=== PATIENT | male | born 1940 | race Caucasian/White ===

== ENCOUNTER 2018-12-26 14:44 | Observation (INO) ==
[2018-12-26] MEDS ORDERED: NITROGLYCERIN 0.4 MG/TAB BTL SL ONE (14:53)
[2018-12-26] MEDS ORDERED: ASPIRIN 325 MG TABLET.DR PO ONE (14:53)
[2018-12-26] MEDS ORDERED: ALBUTEROL SULFATE/IPRATROPIUM 3 ML NEBU IH ONE (14:53)
[2018-12-26] MEDS ORDERED: NITROGLYCERIN 1 INCH PACKET TD ONE (14:57)
[2018-12-26 15:07] LABS: Hemoglobin 15.8 gm/dL (13.5-18.0); Mean Cell Volume 95.1 fl (78-100); Mean Corpuscular Hemoglobin 30.7 pg (27-31); Mean Corpuscular Hgb Conc 32.2 g/dl (32-36); Mean Platelet Volume 10.3 fl (8-11.3); Neutrophil % 67.2 % (42-75.0); Platelet Count 229 K/mm3 (150-450); Red Blood Count 5.15 M/mm3 (4.7-6.0); Red Cell Distribution Width 13.5 % (11.5-14.0); White Blood Count 10.4 K/mm3 (4.0-10.5)
[2018-12-26 15:26] LABS: ALT 21 U/L (19-67); AST 22 U/L (0-48); Albumin * 2.9 gm/dl (3.4-5.0); Alkaline Phosphatase * 85 U/L (50-170); Anion Gap 5.2 mmol/L (6.8-13.8); Bilirubin, Total 0.3 mg/dL (0.0-1.1); Blood Urea Nitrogen 16 mg/dL (6-23); Ca. Corrected For Albumin 9.7 mg/dL (8.4-10.2); Calcium * 9.1 mg/dL (7.9-10.9); Carbon Dioxide 37.9 mmol/L (24-32.6); Chloride 99 mmol/L (97-106); Digoxin 0.5 ng/mL (0.5-2.0); Glucose * 104 mg/dL (70-110); Potassium 4.1 mmol/L (3.4-4.6); Sodium 138 mmol/L (132-142); Total Protein 6.8 gm/dL (6.2-8.2)
[2018-12-26 15:27] LABS: Troponin I Less than 0.017 ng/mL (0.00-0.10)
[2018-12-26] MEDS ORDERED: MORPHINE SULFATE 4 MG/ML SYRG IV ONE (15:37)
[2018-12-26] MEDS ORDERED: METHYLPREDNISOLONE SOD SUCC/PF 125 MG/2 ML VIAL IV ONE (15:41)
[2018-12-26 15:47] LABS: Prothrombin Time (Patient) 25.5 Seconds (9.1-10.7)
[2018-12-26 15:48] LABS: INR 2.68 INR (0.92-1.08)
--- NOTE | 2018-12-26 16:43 | ERNOTE ---
Chest Pain/Cardiac HPI Date of Service: 12/26/18 Chief Complaint: Chest Pain Time Seen by Provider: 12/26/18 14:47 Source: patient, family Exam Limitations: no limitations Immunizations: IMMUNIZATION HX Immunizations Up to Date Yes History of Influenza Vaccine No Hx Pneumococcal Vaccination Yes Allergies/Adverse Reactions: Allergies oxycodone HCl [From Percocet] Allergy (Severe, Verified 09/09/18 08:52) Hives Home Medications: HOME MEDICATIONS Aspirin [Ecotrin] 81 mg PO DAILY 01/30/14 [Last Taken 11/16/14] Budesonide/Formoterol Fumarate [Symbicort 160-4.5 Mcg Inhaler] 2 puff IH BID #1 inhaler 11/20/14 [Last Taken Unknown] Ascorbic Acid [Vitamin C] 1,000 mg PO DAILY 06/20/15 [Last Taken Unknown] acetaminophen 500 mg tablet See Rx Instructions PO Q6H PRN 03/04/18 [Last Taken Unknown] albuterol sulfate HFA 90 mcg/actuation aerosol inhaler See Rx Instructions IH Q6H PRN 03/04/18 [Last Taken Unknown] cholecalciferol (vitamin D3) 2,000 unit capsule 1,000 unit PO DAILY cap 03/04/18 [Last Taken Unknown] ipratropium-albuterol 0.5 mg-3 mg(2.5 mg base)/3 mL nebulization soln 3 ml IH QID #180 ml 06/25/18 [Last Taken Unknown] atorvastatin 40 mg tablet 40 mg PO QHS #90 tab 09/22/18 [Last Taken Unknown] metoprolol tartrate 50 mg tablet 50 mg PO BID #180 tab 12/23/18 [Last Taken Unknown] Citalopram Hydrobromide [Citalopram HBr] 20 mg PO DAILY 12/26/18 [Last Taken Unknown] Digoxin [Lanoxin] 0.125 mg PO DAILY 12/26/18 [Last Taken Unknown] Enalapril/Hydrochlorothiazide [Enalapril-Hctz 10-25 mg Tablet] 1 ea PO DAILY 12/26/18 [Last Taken Unknown] Warfarin Sodium [Coumadin] 5 mg PO TUWEFRSA 12/26/18 [Last Taken Unknown] Warfarin Sodium [Coumadin] 7.5 mg PO SUMOTH 12/26/18 [Last Taken Unknown] omeprazole 20 mg capsule,delayed release 20 mg PO DAILY 12/26/18 [Last Taken Unknown] Narrative: Patient presents to the ED for pain in the center of his chest. This started around 3am. He has never had it before. Nothing seems to make it better or worse. He is not sure if it has been constant or not. Mildly worse with deep breathing. Has not seen anyone else for this. No fever. Has been having some clear cough. Pain moderate right now but he has a hard time rating it. Timing: constant Severity/Quality: moderate Location: central Chest Pain Radiation: no radiation Activities at Onset: none Modifying Factors - Improves: Present: nothing Modifying Factors - Worsens: Present: breathing Nitro Today/Relief: no nitro taken today Aspirin Treatment Today: no aspirin today Associated Symptoms: Present: cough. Absent: headache, syncope, fever/chills, abdominal pain Prior Treatment: Denies: recently seen Review of Systems - Review of Systems Constitutional: Absent: chills EYE: Present: no symptoms reported Respiratory: Present: cough Cardiology: Present: chest pain Gastrointestinal/Abdominal: Absent: abdominal pain Genitourinary: Absent: dysuria All Other Systems: All systems neg except as marked Medical History (Updated 12/11/18 @ 11:13 by David Wood MD) Atrial fibrillation Onset Date: Unknown COPD (chronic obstructive pulmonary disease) Onset Date: Unknown Hyperlipidemia Onset Date: Unknown Hypertension Onset Date: Unknown Myocardial infarction Onset Date: Unknown ANTHONY (obstructive sleep apnea) Onset Date: Unknown Surgical History: Surgical History (Updated 03/04/18 @ 13:45 by Yessy Smith [facility]) H/O Aneurysm Repair Onset Date: ~2001 H/O cystoscopy Onset Date: Unknown H/O heart artery stent Onset Date: ~02/28/01 Dr. Lucy Olivera H/O lithotripsy Onset Date: ~10/14/00 Dr. García, left sided History of incision and drainage Onset Date: ~02/01/14 Dr. Tillman for abscess mid back Hx of cataract surgery Onset Date: ~200606/03/2007 right 07/15/2007 left Family History: Family History (Updated 03/04/18 @ 13:48 by Yessy Smith [employer]) Brother , age 60 Cirrhosis of liver Father , age 70 Lung cancer Mother , age 70's Heart disease Breast cancer Social History: Preferred Language Yi Do you have any yarsani or Yes: judaism cultural preference? Smoking Status Current every day smoker Have you smoked in the past 12 Yes months Do you dip or chew tobacco No Alcohol Use none Drug Use none (Last Updated 12/11/18 @ 11:14 by David Wood MD) No Social History Section defined Physical Exam - Physical Exam General Appearance: Present: alert, no apparent distress Head Exam: Present: normal inspection, no evidence of injury Eye Exam: Normal inspection: bilateral, PERRL: bilateral Ears, Nose, Throat: Present: normal ENT inspection Neck: Present: normal inspection Respiratory: Present: no respiratory distress, no accessory muscle use, wheezing Cardiovascular/Chest: Present: regular rate, rhythm Gastrointestinal/Abdominal: Present: normal bowel sounds, nontender, soft Back Exam: Absent: CVA tenderness (R), CVA tenderness (L) Extremity Exam: Present: normal range of motion Neurological Exam: Present: alert, no motor/sensory deficits Skin Exam: Present: normal color, warm/dry Progress - Results and Orders Patient's Lab Results:: I have reviewed the patient's lab results. - Vital Signs Patient's Vital Signs:: I have reviewed the patient's vital signs. Vital Signs: Vital Signs 12/26/18 14:46 12/26/18 15:04 12/26/18 15:26 Temperature 36.7 C Pulse Rate 69 58 L 58 L Respiratory Rate 23 H 15 Blood Pressure 114/37 O2 Sat by Pulse Oximetry 92 L 12/26/18 15:54 Temperature Pulse Rate 57 L Respiratory Rate 18 Blood Pressure 131/62 O2 Sat by Pulse Oximetry 95 - EKG EKG #1 EKG: NSR EKG read: Interp. by me EKG Comments: NSR rate 69. Non-specific changes , no STEMI noted. - X-Ray X-Ray #1 X-Ray: chest Interpretation: Interp. by me X-ray Comments: I reviewed official radiology report - CT/Ultrasound CT/Ultrasound Narrative: I reviewed official radiology report - Progress/Reassessment Chief Complaint: Chest Pain Progress Note-Subjective: 12/26/18 16:42 Pain improved with NTG. Dr Montoya requests CT prior to admission. D/W Patient. Departure Clinical Impression: Chest pain, Lung mass - Departure Disposition: Still a patient Condition: Fair Referrals: David Wood MD [Primary Care Provider] -
[2018-12-26] MEDS ORDERED: METOPROLOL TARTRATE 1 MG/ML AMPUL IV ONE (19:46)
[2018-12-26] MEDS ORDERED: ACETAMINOPHEN 500 MG TABLET PO PRN (19:47)
[2018-12-26] MEDS ORDERED: WARFARIN SODIUM 5 MG TABLET PO SCH (20:00)
[2018-12-26] MEDS ORDERED: FLUTICASONE PROPION/SALMETEROL 14 PUFF DISK.W.DEV IH SCH (20:15)
[2018-12-26] MEDS ORDERED: BENZONATATE 100 MG CAPSULE PO PRN (20:26)
--- NOTE | 2018-12-26 20:26 | HP ---
Chief Complaint - Chief Complaint Date of Service: 12/26/18 Time of Service: 19:52 Chief Complaint: chest pain History of Present Illness: Patient with PMHx of afib, COPD presented to the ED after having several hours of centralized chest pain. He has shortness of breath and cough at baseline, and these have not increased today since his cough developed. Denies fever, abdominal pain, or other complaints. Initial troponin was negative, and EKG showed sinus rhythm. CXR showed a mass with very distinct borders, and CT chest was subsequently ordered. This revealed a large right upper lobe pleural based mass in his chest with possibly bony destruction, and possible adrenal metastases. He was unaware of this previously. His reports he has been losing weight. He was admitted for repeat troponin and EKG. Will refer him to pulmonology after DC for biopsy. Shortly after arriving to the floor, and after my evaluation, he had a coughing fit, and subsequently flipped into afib with RVR, with a rate to the 140's. He is prescribed 0.125 mg digoxin, and 50 mg metroprolol bid for afib, and is anticoagulated with warfarin. He had not taken his medications on the day of admission. He was given 5 mg lopressor, and restarted his home meds. Medical History (Updated 12/26/18 @ 16:43 by Marbin Gamez MD) Atrial fibrillation Onset Date: Unknown COPD (chronic obstructive pulmonary disease) Onset Date: Unknown Hyperlipidemia Onset Date: Unknown Hypertension Onset Date: Unknown Myocardial infarction Onset Date: Unknown ANTHONY (obstructive sleep apnea) Onset Date: Unknown Surgical History: Surgical History (Updated 03/04/18 @ 13:45 by Yessy Smith [facility]) H/O Aneurysm Repair Onset Date: ~2001 H/O cystoscopy Onset Date: Unknown H/O heart artery stent Onset Date: ~02/28/01 Dr. Lucy Olivera H/O lithotripsy Onset Date: ~10/14/00 Dr. García, left sided History of incision and drainage Onset Date: ~02/01/14 Dr. Tillman for abscess mid back Hx of cataract surgery Onset Date: ~200606/03/2007 right 07/15/2007 left Family History: Family History (Updated 03/04/18 @ 13:48 by Yessy Smith [facility]) Brother , age 60 Cirrhosis of liver Father , age 70 Lung cancer Mother , age 70's Heart disease Breast cancer Social History: Patient Lives/Resources With Spouse Utilized Occupation retired Preferred Language Micronesian Do you have any voodoo or Yes: Hindu cultural preference? Smoking Status Current every day smoker Have you smoked in the past 12 Yes months Do you dip or chew tobacco No Alcohol Use none Drug Use none (Last Updated 12/11/18 @ 11:14 by David Wood MD) No Social History Section defined Review Of Systems (GEN) - Review of Systems Generalized/Overall Review: Absent: Fever Respiratory: Present: Cough, Shortness of Breath Cardiac: Present: Chest Pain Abdominal: Absent: Nausea Genitourinary: Present: No Symptoms Reported Neurological: Present: No Symptoms Reported Immunizations: IMMUNIZATION HX Immunizations Up to Date Yes History of Influenza Vaccine No Hx Pneumococcal Vaccination Yes Allergies/Adverse Reactions: Allergies Allergy/AdvReac Type Severity Reaction Status Date / Time oxycodone HCl [From Percocet] Allergy Severe Hives Verified 12/26/18 19:09 Home Medications: HOME MEDICATIONS Aspirin [Ecotrin] 81 mg PO DAILY 01/30/14 [Last Taken 11/16/14] Budesonide/Formoterol Fumarate [Symbicort 160-4.5 Mcg Inhaler] 2 puff IH BID #1 inhaler 11/20/14 [Last Taken Unknown] Ascorbic Acid [Vitamin C] 1,000 mg PO DAILY 06/20/15 [Last Taken Unknown] acetaminophen 500 mg tablet See Rx Instructions PO Q6H PRN 03/04/18 [Last Taken Unknown] cholecalciferol (vitamin D3) 2,000 unit capsule 1,000 unit PO DAILY cap 03/04/18 [Last Taken Unknown] ipratropium-albuterol 0.5 mg-3 mg(2.5 mg base)/3 mL nebulization soln 3 ml IH QID #180 ml 06/25/18 [Last Taken Unknown] atorvastatin 40 mg tablet 40 mg PO QHS #90 tab 09/22/18 [Last Taken Unknown] metoprolol tartrate 50 mg tablet 50 mg PO BID #180 tab 12/23/18 [Last Taken Unknown] Citalopram Hydrobromide [Citalopram HBr] 20 mg PO DAILY 12/26/18 [Last Taken Unknown] Digoxin [Lanoxin] 0.125 mg PO DAILY 12/26/18 [Last Taken Unknown] Enalapril/Hydrochlorothiazide [Enalapril-Hctz 10-25 mg Tablet] 1 ea PO DAILY 12/26/18 [Last Taken Unknown] Warfarin Sodium [Coumadin] 7.5 mg PO SUMOTH 12/26/18 [Last Taken Unknown] Warfarin Sodium [Coumadin] 10 mg PO WEFR12/26/18 [Last Taken Unknown] omeprazole 20 mg capsule,delayed release 20 mg PO DAILY 12/26/18 [Last Taken Unknown] Exam - Exam Vital Signs: Vital Signs - Last Taken Temp 36.6 C 12/26/18 19:12 Pulse 65 12/26/18 19:12 Resp 24 H 12/26/18 19:12 BP 128/69 12/26/18 19:12 Pulse Ox 96 12/26/18 19:12 Constitutional: Present: Alert, Oriented x3, Cooperative, Elderly ENT Exam: Present: hard of hearing Respiratory: Present: no respiratory distress, decreased breath sounds, other - wearing oxygen, at his baseline Cardiovascular/Chest: Present: regular rate, rhythm. Absent: chest tender, edema Abdomen: Present: soft, nontender, nondistended Eye contact: Present: cooperative, good eye contact Diagnostic Studies: Abnormal Lab Results 12/26/18 12/26/18 12/26/18 Range/Units 15:00 15:00 15:00 Immature Gran % (Auto) 0.70 H (0.001-0.429) % Immature Gran # (Auto) 0.07 H (0.000-0.0310) K/mm3 Neutrophils # 7.0 H (1.3-6.0) K/mm3 PT 25.5 H (9.1-10.7) Seconds INR (Anticoag Therapy) 2.68 H (0.92-1.08) INR Carbon Dioxide 37.9 H (24-32.6) mmol/L Anion Gap 5.2 L (6.8-13.8) mmol/L Albumin 2.9 L (3.4-5.0) gm/dl Laboratory Results WBC 10.4 K/mm3 (4.0-10.5) 12/26/18 15:00 RBC 5.15 M/mm3 (4.7-6.0) 12/26/18 15:00 Hgb 15.8 gm/dL (13.5-18.0) 12/26/18 15:00 Hct 49.0 % (42.0-52.0) 12/26/18 15:00 MCV 95.1 fl (78-100) 12/26/18 15:00 MCH 30.7 pg (27-31) 12/26/18 15:00 MCHC 32.2 g/dl (32-36) 12/26/18 15:00 RDW 13.5 % (11.5-14.0) 12/26/18 15:00 Plt Count 229 K/mm3 (150-450) 12/26/18 15:00 MPV 10.3 fl (8-11.3) 12/26/18 15:00 Immature Gran % (Auto) 0.70 % (0.001-0.429) H 12/26/18 15:00 Immature Gran # (Auto) 0.07 K/mm3 (0.000-0.0310) H 12/26/18 15:00 67.2 % (42-75.0) 12/26/18 15:00 21.8 % (20-51) 12/26/18 15:00 8.5 % (0.0-9) 12/26/18 15:00 1.3 % (0.0-3.0) 12/26/18 15:00 0.5 % (0.0-1.0) 12/26/18 15:00 Nucleated RBC % 0.0 k/mm3 (0-1) 12/26/18 15:00 7.0 K/mm3 (1.3-6.0) H 12/26/18 15:00 2.27 k/mm3 (1.5-3.5) 12/26/18 15:00 0.9 k/mm3 (0.0-1.0) 12/26/18 15:00 0.1 k/mm3 (0.0-0.7) 12/26/18 15:00 Absolute Basophils 0.1 k/mm3 (0.0-0.1) 12/26/18 15:00 PT 25.5 Seconds (9.1-10.7) H 12/26/18 15:00 INR (Anticoag Therapy) 2.68 INR (0.92-1.08) H 12/26/18 15:00 Sodium 138 mmol/L (132-142) 12/26/18 15:00 138 mmol/L (130-142) 12/26/18 15:00 Potassium 4.1 mmol/L (3.4-4.6) 12/26/18 15:00 Chloride 99 mmol/L (97-106) 12/26/18 15:00 Carbon Dioxide 37.9 mmol/L (24-32.6) H 12/26/18 15:00 5.2 mmol/L (6.8-13.8) L 12/26/18 15:00 BUN 16 mg/dL (6-23) 12/26/18 15:00 0.80 mg/dL (0.4-1.4) 12/26/18 15:00 Est GFR (Non-Af Amer) 99 mL/min (60-130) 12/26/18 15:00 20.0 (9.0-21.6) 12/26/18 15:00 104 mg/dL (70-110) 12/26/18 15:00 Calcium 9.1 mg/dL (7.9-10.9) 12/26/18 15:00 Calcium Adj for Albumin 9.7 mg/dL (8.4-10.2) 12/26/18 15:00 0.3 mg/dL (0.0-1.1) 12/26/18 15:00 AST 22 U/L (0-48) 12/26/18 15:00 ALT 21 U/L (19-67) 12/26/18 15:00 85 U/L (50-170) 12/26/18 15:00 Less than 0.017 ng/mL (0.00-0.10) 12/26/18 15:00 6.8 gm/dL (6.2-8.2) 12/26/18 15:00 2.9 gm/dl (3.4-5.0) L 12/26/18 15:00 Digoxin 0.5 ng/mL (0.5-2.0) 12/26/18 15:00 Assessment/Plan - Assessment/Plan (1) Chest pain Assessment: Initial troponin not elevated, no acute findings of ischemia or infarct on initial EKG. Repeat pending for 2100. Ddx includes ACS, COPDe, bony mets, musculoskeletal source, reflux. He had some improvement with morphine in the ED, and will continue. He had a history of COPD, and continues to smoke. He is afebrile, WBC not elevated, and no signs of pneumonia on his CXR, and no increased oxygen requirement make COPD exacerbation less likely. With the potential bony destruction found on his CT, this a very possible source of his pain. Problem: Acute (2) Atrial fibrillation and flutter Assessment: He was in sinus rhythm at my exam, and has since flipped into afib with RVR with a rate into the 130's after a coughing fit. 5 mg lopressor given. He hadn't taken his home digoxin or metoprolol today, and will restart these tonight. He is anticoagulated with warfarin. If he remains higher than 130, will repeat lopressor X 2 and call cardiology in the morning. He had recorded heart rates in the 50's earlier this afternoon. Problem: Chronic (3) Lung mass Assessment: CT chest showed "Large right upper lobe pleural-based mass with possible underlying bony destruction. Malignancy must be excluded. Small nodularity within the right lung scattered throughout as above. Metastatic disease cannot be excluded. Large adrenal masses bilaterally suspicious for metastatic disease." He was unaware of these findings previously, and his reports he has been losing weight. Will need to refer him to pulmonology for biopsy. Problem: Acute (4) COPD (chronic obstructive pulmonary disease) Assessment: Continue home meds. Will add tessalon perles and mucinex for cough. Problem: Chronic
[2018-12-26] MEDS: MORPHINE SULFATE 4 MG/ML SYRG IV PRN (20:29)
[2018-12-26] MEDS: DIGOXIN 0.125 MG TABLET PO SCH (21:01)
[2018-12-26] MEDS: METOPROLOL TARTRATE 50 MG TABLET PO SCH (21:01)
[2018-12-26] MEDS: CITALOPRAM HYDROBROMIDE 20 MG TABLET PO SCH (21:01)
[2018-12-26] MEDS: ENALAPRIL MALEATE 5 MG TABLET PO SCH (21:01)
[2018-12-26] MEDS: HYDROCHLOROTHIAZIDE 25 MG TABLET PO SCH (21:01)
[2018-12-26] MEDS: ALBUTEROL SULFATE/IPRATROPIUM 3 ML NEBU IH SCH (21:40)
[2018-12-27] MEDS: MORPHINE SULFATE 4 MG/ML SYRG IV PRN ×2 (01:29→05:56)
[2018-12-27] MEDS: ALBUTEROL SULFATE/IPRATROPIUM 3 ML NEBU IH SCH ×2 (06:08→10:05)
[2018-12-27] MEDS ORDERED: ACETAMINOPHEN 500 MG TABLET PO PRN (07:15)
[2018-12-27] MEDS ORDERED: MORPHINE SULFATE 2 MG/ML DISP.SYRIN IV PRN (07:15)
[2018-12-27] MEDS ORDERED: PANTOPRAZOLE SODIUM 20 MG TABLET.DR PO SCH (07:30)
[2018-12-27] MEDS: CITALOPRAM HYDROBROMIDE 20 MG TABLET PO SCH (08:41)
[2018-12-27] MEDS: HYDROCHLOROTHIAZIDE 25 MG TABLET PO SCH (08:41)
[2018-12-27] MEDS: ENALAPRIL MALEATE 5 MG TABLET PO SCH (08:41)
[2018-12-27] MEDS: METOPROLOL TARTRATE 50 MG TABLET PO SCH (08:42)
[2018-12-27] MEDS: DIGOXIN 0.125 MG TABLET PO SCH (08:43)
[2018-12-27] MEDS ORDERED: HYDROcodone/ACETAMINOPHEN 1 EACH TABLET PO PRN (08:46)
[2018-12-27] MEDS ORDERED: ASPIRIN 81 MG TABLET.DR PO SCH (09:00)
[2018-12-27] MEDS ORDERED: HYDROCHLOROTHIAZIDE 25 MG TABLET PO SCH (09:00)
--- NOTE | 2018-12-27 10:49 | DS ---
(1) Chest pain Problem: Acute (2) Atrial fibrillation and flutter Problem: Chronic (3) Lung mass Problem: Acute (4) COPD (chronic obstructive pulmonary disease) Problem: Chronic Description of Stay: Patient with PMHx of afib, COPD presented to the ED after having several hours of centralized chest pain. He has shortness of breath and cough at baseline, and these had not increased today since his chest pain developed. Denies fever, abdominal pain, or other complaints. Troponins were negative, and EKG showed sinus rhythm. CXR showed a mass with very distinct borders, and CT chest was s ubsequently ordered. This revealed a large right upper lobe pleural based mass in his chest with possibly bony destruction, and possible adrenal metastases. He was unaware of this previously. His reports he has been losing weight. Shortly after arriving to the floor, and after my evaluation, he had a coughing fit, and subsequently flipped into afib with RVR, with a rate to the 140's. At home he is prescribed 0.125 mg digoxin, and 50 mg metroprolol bid for afib, and is anticoagulated with warfarin. He had not taken his medications on the day of admission. He was given 5 mg lopressor, and restarted his home meds. His heart rate then remained around 100. We will get him scheduled with cardiology after DC. INR was at therapeutic level of 2.68. The day after discharge, his pain medicine was changed from morphine to norco in anticipation of discharge. He had an allergy to oxycodone in this chart, with hives as a reaction. His is very concerned about pain control after discharge, and he was given a dose of [place] without adverse effects. He felt comfortable using [place] for pain control going forward. Discussed the concerning findings on his chest CT, and will be referring him to pulmonology for potential biopsy. There is a chance his chest pain may have come from the possible bony destruction secondary to the mass. Procedures Performed: none Results and Findings: Lab Pending Results 12/26/18 15:00: WBC 10.4, RBC 5.15, Hgb 15.8, Hct 49.0, MCV 95.1, MCH 30.7, MCHC 32.2, RDW 13.5, Plt Count 229, MPV 10.3, Immature Gran % (Auto) 0.70 H, Immature Gran # (Auto) 0.07 H, Neutrophils % 67.2, Lymphocytes % 21.8, Monocytes % 8.5, Eosinophils % 1.3, Basophils % 0.5, Nucleated RBC % 0.0, Neutrophils # 7.0 H, Lymphocytes # 2.27, Monocytes # 0.9, Eosinophils # 0.1, Absolute Basophils 0.1 12/26/18 15:00: PT 25.5 H, INR (Anticoag Therapy) 2.68 H 12/26/18 15:00: Sodium 138, Plasma Sodium 138, Potassium 4.1, Chloride 99, Carbon Dioxide 37.9 H, Anion Gap 5.2 L, BUN 16, Creatinine 0.80, Est GFR (Non-Af Amer) 99, BUN/Creatinine Ratio 20.0, Random Glucose 104, Calcium 9.1, Calcium Adj for Albumin 9.7, Total Bilirubin 0.3, AST 22, ALT 21, Alkaline Phosphatase 85, Troponin I Less than 0.017, Total Protein 6.8, Albumin 2.9 L, Digoxin 0.5 12/26/18 21:00: Troponin I Less than 0.017 Discharge Location: Home Disposition: Home self-care Condition: Fair Discharge Activity: Activity as tolerated Discharge Diet: General/regular food Referrals: David Wood MD [Primary Care Provider] - One Week Additional Patient Instructions (free text): TCM appointment at [place] Make referrals to [facility] Pulmonology for lung mass. Patient has seen Lucy Olivera in the past and would like to see either her or another MD from [facility] that comes to [facility]. Does not want to travel to [place] if possible. Patient with a-fib. Call patient's , Rita, at [phone] with appointment dates/time per patient request. Prescriptions (Any new or edited meds): guaiFENesin [Mucinex] 1,200 mg PO BID #20 tablet.sa HYDROcodone/ACETAMINOPHEN [[place] 5-325] 1 ea PO Q6H PRN #28 tab PRN Reason: Pain Benzonatate [Tessalon] 200 mg PO TID PRN #21 cap PRN Reason: Cough Complete Home Medications List: Complete Home Medication List: Aspirin [Ecotrin] 81 mg PO DAILY 01/30/14 Ascorbic Acid [Vitamin C] 1,000 mg PO DAILY 06/20/15 acetaminophen 500 mg tablet See Rx Instructions PO Q6H PRN 03/04/18 cholecalciferol (vitamin D3) 2,000 unit capsule 1,000 unit PO DAILY cap 03/04/18 ipratropium-albuterol 0.5 mg-3 mg(2.5 mg base)/3 mL nebulization soln 3 ml IH QID #180 ml 06/25/18 atorvastatin 40 mg tablet 40 mg PO QHS #90 tab 09/22/18 metoprolol tartrate 50 mg tablet 50 mg PO BID #180 tab 12/23/18 Budesonide [Pulmicort Respules] 2 ml INHALATION BID 12/26/18 Citalopram Hydrobromide [Citalopram HBr] 20 mg PO DAILY 12/26/18 Digoxin [Lanoxin] 0.125 mg PO DAILY 12/26/18 Enalapril/Hydrochlorothiazide [Enalapril-Hctz 10-25 mg Tablet] 1 ea PO DAILY 12/26/18 Warfarin Sodium [Coumadin] 7.5 mg PO SUMOTH 12/26/18 Warfarin Sodium [Coumadin] 10 mg PO TUWEFRSA 12/26/18 omeprazole 20 mg capsule,delayed release 20 mg PO DAILY 12/26/18 Benzonatate [Tessalon] 200 mg PO TID PRN #21 cap 12/27/18 HYDROcodone/ACETAMINOPHEN [[place] 5-325] 1 ea PO Q6H PRN #28 tab 12/27/18 guaiFENesin [Mucinex] 1,200 mg PO BID #20 tablet.sa 12/27/18
[2018-12-27 11:13] VITALS: BP 120/64
[2018-12-27] MEDS ORDERED: WARFARIN SODIUM 10 MG TABLET PO SCH (17:00)
[2018-12-28] MEDS ORDERED: WARFARIN SODIUM 7.5 MG TABLET PO SCH (17:00)
== END 2018-12-27 11:24 | disposition home or self-care (01) ==
LOC: ER 14:44 → MS 14:44
PROVIDERS: ADMIT Family Medicine; ATTEND Internal Medicine
DX: J44.9 Chronic obstructive pulmonary disease, unspecified; R07.9 Chest pain, unspecified; R91.8 Other nonspecific abnormal finding of lung field; I48.92 Unspecified atrial flutter; I48.91 Unspecified atrial fibrillation
CPT/HCPCS: 36415; 71020; 71046; 71260; 80053; 80162; 84484; 85025; 85610; 93005; 94640; 94664; 96374; 96375; 99285; G0378; Q9967